=== PATIENT | female | born 1990 | race Caucasian/White ===

== ENCOUNTER 2024-04-30 19:00 | Inpatient (IN) | payer MEDICAID, OTHER ==
[2024-04-30] MEDS ORDERED: hydrALAZINE 20 MG/ML VIAL SLOW IVP PRN (21:42)
[2024-04-30] MEDS ORDERED: Methylergonovine 0.2 MG/ML VIAL IM PRN (21:42)
[2024-04-30] MEDS ORDERED: Diphenoxylate HCl/Atropine Tablet PO PRN (21:42)
[2024-04-30] MEDS ORDERED: fentaNYL 50 mcg/mL 1 mL Vial SLOW IVP PRN (21:42)
[2024-04-30] MEDS ORDERED: Misoprostol 200 MCG TAB PR PRN (21:42)
[2024-04-30] MEDS ORDERED: Acetaminophen 500 MG TAB PO PRN (21:42)
[2024-04-30] MEDS ORDERED: Promethazine HCl 25 MG/ML VIAL IM PRN (21:42)
[2024-04-30] MEDS ORDERED: Lidocaine 1% (PF) 30 ML VIAL SC PRN (21:42)
[2024-04-30] MEDS ORDERED: HYDROcodone/Acetaminophen 5/325 mg Tablet PO PRN (21:42)
[2024-04-30] MEDS ORDERED: Tranexamic Acid 1,000 MG/10 ML VIAL IVP PRN (21:42)
[2024-04-30] MEDS ORDERED: Carboprost 250 MCG/ML AMP IM PRN (21:42)
[2024-04-30] MEDS ORDERED: Ondansetron PF 4 MG/2 ML Vial IVP PRN (21:42)
[2024-04-30 22:19] VITALS: BMI 29.0
[2024-04-30] MEDS ORDERED: Oxytocin 30 units/NS 500 ML 500 ML IV SCH (23:00)
[2024-04-30] MEDS: Lactated Ringer's 1,000 ML IV SCH (23:00)
[2024-04-30 23:13] LABS: Hematocrit 34.4 % (34.9-44.5); Hemoglobin 12.1 g/dL (12.0-15.5); Mean Corpuscular HGB CONC 35.2 g/dL (32.0-36.0); Mean Corpuscular Hemoglobin 30.9 pg (27.0-33.0); Mean Corpuscular Volume 87.8 fL (81.6-98.3); Mean Platelet Volume 9.8 fL (7.4-10.4); Platelet Count 275 10x3/uL (150-450); RBC Distribution Width 13.4 % (11.5-14.5); Red Blood Cell (RBC) Count 3.92 10x6/uL (3.90-5.03); White Blood Cell (WBC) Count 8.5 10x3/uL (3.5-10.5)
[2024-04-30 23:39] LABS: HBsAg Index 0.19 S/CO (0-0.99); Hep B Surf Ag - L&D Non-Reactive S/CO (NonReactive); Syphilis Antibody Nonreactive (Nonreactive); Syphilis Antibody Index 0.06 S/CO (<1.00 Non-Reactive)
[2024-05-01] MEDS: Oxytocin 30 units/NS 500 ML 500 ML IV SCH ×2 (06:41→11:07)
[2024-05-01] MEDS: Misoprostol 100 MCG TAB PO SCH (07:24)
[2024-05-01] MEDS: fentaNYL/Ropivacaine Epidural 100 ML ONE (08:35)
[2024-05-01] MEDS ORDERED: Ondansetron PF 4 MG/2 ML Vial IVP PRN ×2 (09:11→14:08)
[2024-05-01] MEDS ORDERED: Moisturizing Cream (Eucerin) 113 GM JAR TOP PRN (09:11)
[2024-05-01] MEDS ORDERED: diphenhydrAMINE 50 MG/ML VIAL IVP PRN (09:11)
[2024-05-01] MEDS ORDERED: Naloxone HCl 0.4 mg/ml Vial IVP PRN ×2 (09:11)
[2024-05-01] MEDS ORDERED: ePHEDrine Sulfate 50 MG/10 ML VIAL SLOW IVP PRN (09:11)
[2024-05-01] MEDS ORDERED: Promethazine HCl 25 MG/ML VIAL IM PRN (09:11)
[2024-05-01] MEDS ORDERED: Acetaminophen 325 MG TAB PO PRN (09:11)
[2024-05-01] MEDS ORDERED: Lactated Ringer's 500 ML IV PRN (09:11)
[2024-05-01] MEDS ORDERED: Communication Order-Pharmacy FS SCH (09:15)
[2024-05-01] MEDS ORDERED: fentaNYL 2 mcg/Ropivacaine 0.2% Epidural 100 ML CADD EPIDURAL SCH (09:15)
[2024-05-01] MEDS: Ibuprofen 800 MG TAB PO PRN (12:03)
[2024-05-01] MEDS ORDERED: hydrALAZINE 20 MG/ML VIAL SLOW IVP PRN (14:08)
[2024-05-01] MEDS ORDERED: Boostrix 0.5 ML (Tdap) VIAL (>/=7 yrs of age) IM ONE (14:08)
[2024-05-01] MEDS ORDERED: Bisacodyl 10 MG SUPP PR PRN (14:08)
[2024-05-01] MEDS ORDERED: Milk Of Magnesia 30 ML UDCUP PO PRN (14:08)
[2024-05-01] MEDS: Ferrous Sulfate 325 MG TAB PO SCH (16:02)
[2024-05-01] MEDS: HYDROcodone/Acetaminophen 5/325 mg Tablet PO PRN (17:16)
[2024-05-01] MEDS: Benzocaine-Menthol 82.5 ML CAN TOP PRN (17:17)
[2024-05-01] MEDS: Ibuprofen 800 MG TAB PO SCH (22:17)
[2024-05-01] MEDS: Docusate 100 MG CAP PO SCH (22:17)
[2024-05-02 07:46] VITALS: BP 120/80; TEMP 97.9
[2024-05-02] MEDS: Prenatal Vitamin 1 TAB PO SCH (08:56)
[2024-05-02] MEDS: Ibuprofen 800 MG TAB PO SCH (08:57)
== END 2024-05-02 12:50 | disposition home or self-care (01) | DRG 807 ==
LOC: CSHLD 21:09 → CSHPP 05-01 12:09
PROVIDERS: ADMIT Family Medicine; ATTEND Family Medicine
PROC: 10E0XZZ Delivery of Products of Conception, External Approach (ICD-10-PCS; principal; 2024-05-01)
PROC: 0KQM0ZZ Repair Perineum Muscle, Open Approach (ICD-10-PCS; 2024-05-01)
PROC: 10907ZC Drainage of Amniotic Fluid, Therapeutic from Products of Conception, Via Natural or Artificial Opening (ICD-10-PCS; 2024-05-01)
DX: O99.284 Endocrine, nutritional and metabolic diseases complicating childbirth (principal); Z37.0 Single live birth; Z3A.40 40 weeks gestation of pregnancy; O70.1 Second degree perineal laceration during delivery
CPT/HCPCS: 51702; 85027; 86780; 86850; 86900; 86901; 87340; J2590; J7120